=== PATIENT | male | born 1945 | race Caucasian/White ===

== ENCOUNTER 2023-08-19 10:17 | Emergency (ER) | payer OTHER, SELFPAY ==
[2023-08-19 10:24] VITALS: BP 152/88; PULSE 82; RESP 18; TEMP 36.6; O2SAT 96; BMI 34.8
--- NOTE | 2023-08-19 10:30 | DI.RAD.S_ITS ---
PROCEDURE: XR SHOULDER LT MIN 2V INDICATIONS: fall/pain/bump TECHNIQUE: 3 views of the shoulder were acquired. COMPARISON: None. FINDINGS: Bones: No fractures or dislocations. No suspicious bony lesions. Visualized ribs appear intact. Subchondral cystic changes in the humeral head subjacent to the insertion the supraspinatus tendon are consistent rotator cuff tendinosis. Soft tissues: No suspicious soft tissue calcifications. IMPRESSION: No acute bony abnormality. Probable supraspinatus tendinosis Dictated by: Ayaz Ross M.D. on 08/19/2023 at 11:22 Approved by: Ayaz Ross M.D. on 08/19/2023 at 11:23
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
[2023-08-19 13:05] VITALS: BP 140/76; PULSE 76; RESP 24; O2SAT 98
== END 2023-08-19 12:47 | disposition home or self-care (01) ==
PROVIDERS: Emergency Provider Physician Assistant Medical
DX: S46.912A Strain of unspecified muscle, fascia and tendon at shoulder and upper arm level, left arm, initial encounter (principal); S40.012A Contusion of left shoulder, initial encounter; V28.01XA Electric (assisted) bicycle driver injured in noncollision transport accident in nontraffic accident, initial encounter; Y93.55 Activity, bike riding; Y92.410 Unspecified street and highway as the place of occurrence of the external cause
CPT/HCPCS: 73010; 73030; 99282; 99283

== ENCOUNTER 2024-01-16 14:44 | Emergency (ER) | payer OTHER, SELFPAY ==
[2024-01-16 14:46] VITALS: BP 144/66; PULSE 102; RESP 18; TEMP 36.1; O2SAT 97; BMI 35.2
--- NOTE | 2024-01-16 14:54 | DI.RAD.S_ITS ---
PROCEDURE: XR CHEST 1V INDICATIONS: chest pain TECHNIQUE: One view of the chest was acquired. COMPARISON: None. FINDINGS: Mild bilateral perihilar and lower lobe peribronchial thickening some of which may be related expiratory result although bronchitis, viral infection, early findings of bronchopneumonia or other process could be considered. Mild blunting left costophrenic angle may represent trace pleural effusion, pleural thickening, subsegmental atelectasis or other process. Mildly enlarged cardiopericardial silhouette. Pulmonary vasculature within normal limits. Mild calcifications of the aortic arch. Moderate degenerate changes of the thoracic spine and shoulders. No pneumothorax, no lobar consolidation. IMPRESSION: Mild bilateral perihilar and lower lobe peribronchial thickening as discussed above. Mild blunting left costophrenic angle. Mildly enlarged cardiopericardial silhouette. Follow-up suggested. If symptoms persist or worsen, CT could be performed Dictated by: García Escalera M.D. on 01/16/2024 at 15:21 Approved by: García Escalera M.D. on 01/16/2024 at 15:24
--- NOTE | 2024-01-16 15:01 | EKG_ITS ---
[place] [address] [address] [place] [id number] Test Date: 2024-01-16 Pat Name: Marcus Lloyd Department: [facility] Room: Gender: Male [employer] Operator: kelvin : 1945 Requested By: Order Number: [id number] Reading MD: William Goddard Measurements Intervals [place] Rate: 93 P: 33 MS: 252 QRS: 180 QRSD: 106 T: 34 QT: 350 QTc: 435 Interpretive Statements Sinus rhythm with 1st degree AV block Indeterminate axis Low voltage QRS Inferior infarct , age undetermined Electronically Signed On 01-19-2024 19:47:40 PDT by William Goddard
[2024-01-16 15:04] VITALS: PULSE 93; RESP 18; O2SAT 96
[2024-01-16 15:05] VITALS: BP 102/68; PULSE 92; RESP 18; O2SAT 97
[2024-01-16 15:20] LABS: Add Manual Diff / Slide Review NO; Basophils Absolute Auto 100 /uL (0-100); Basophils Percent Auto 0.7 % (0-2); Eosinophils Absolute Auto 0 /uL (0-450); Eosinophils Percent Auto 0.4 % (2-4); Hematocrit 44.5 % (41-53); Hemoglobin 15.1 g/dL (13.5-17.5); Lymphocytes Absolute Auto 1600 /uL (1100-4500); Lymphocytes Percent Auto 14.4 % (25-40); Mean Corpuscular HGB Conc 33.9 % (30-36); Mean Corpuscular Volume 91.6 fL (80-100); Monocytes Absolute Auto 700 /uL (0-900); Monocytes Percent Auto 6.7 % (3-14); Neutrophils Absolute Auto 8600 /uL (1500-7000); Neutrophils Percent Auto 77.8 % (50-75); Platelet Count 280 X10^3/uL (150-400); Red Blood Cell Count 4.86 X10^6/uL (4.5-5.9); Red Cell Distribution Width 13.9 % (11.6-14.8); White Blood Cell Count 11.1 X10^3/uL (4.5-11.0)
[2024-01-16 15:26] LABS: Prothrombin Time 11.2 SECONDS (9.4-12.5)
[2024-01-16 15:29] LABS: PTT Partial Thromboplastin Tim 39 SECONDS (25.1-36.5)
[2024-01-16 15:30] VITALS: BP 106/65; PULSE 89; RESP 14; O2SAT 94
--- NOTE | 2024-01-16 15:32 | ED.ARRPALP ---
HPI - Arrhythmia/Palpitations General Chief Complaint: Arrhythmia/Palpitations Stated Complaint: tachycardic, sent by [facility] Time Seen by Provider: 01/16/24 15:32 Source: patient Mode of arrival: Ambulatory History of Present Illness HPI narrative: Patient is a 78-year-old male with past medical history of hypertension comes into the ED for evaluation of high heart rate. He states that over the past several days his apple watch has been telling him that his heart rate has been going up, not sustaining, he states that he has no symptoms with this is happening. States that he has been noticed since for the past several weeks therefore went to urgent Care, they state that they were sent here once they were evaluated at urgent care. He denies any chest pain shortness of breath denies any palpitations denies any lightheaded dizziness. States that he did have a change in his blood pressure medication from amlodipine to spironolactone around the same timeframe, states this is managed by his primary care doctor. No trauma no falls Related Data Allergies Allergy/AdvReac Type Severity Reaction Status Date / Time No Known Drug Allergies Allergy Verified 08/19/23 10:24 Review of Systems Review of Systems Narrative: HEENT: Denies headache, eye drainage, eye irritation, head trauma, sore throat, voice change Cardiovascular: Denies any chest pain, palpitations, shortness of breath, positive for tachycardia Respiratory: Denies any shortness of breath, cough, wheeze, stridor GI/: Denies any abdominal pain, nausea, vomiting, diarrhea, bright red blood per rectum, melanotic stools, urinary frequency, urinary retention, dysuria, hematuria MSK: Denies any joint pain, muscle pains, swelling Skin: Denies any rashes, lesions, discoloration Neuro: Denies any headache, lightheadedness, dizziness, fainting, weakness Psych: Denies SI/HI Patient History Social History Smoking Status: Never smoker Smoking Status: Never smoker alcohol intake frequency: a few times a week Alcohol type: beer, wine and hard liquor Substance Use Type: does not use Exam Narrative Exam Narrative: General: Cooperative, comfortable, well-developed, not in acute distress HEENT: Normocephalic, atraumatic, PERRLA, normal sclera, eyelids normal, Neck: Active full range of motion, atraumatic Chest: Normal to inspection, negative crepitus, no overlying erythema ecchymosis Respiratory: Normal respiratory effort, not in acute respiratory distress, clear to auscultation bilaterally negative cough, wheeze, tachypnea, rhonchi, rales Cardiology: Regular rate rhythm negative gallop, murmur, rubs GI/: Normal to inspection, soft, nonrigid, no tenderness to palpation, exam deferred MSK: Full range of active range of motion of all 4 extremities, atraumatic Skin: No rashes lesions noted Neuro: Alert awake oriented x3, moves all 4 extremities spontaneously, cranial nerves intact, able to answer all questions appropriately follows commands appropriately Psych: Cooperative, negative suicidal or homicidal ideations Initial Vital Signs Initial Vital Signs: Vital Signs Temperature 97 F L 01/16/24 14:46 Pulse Rate 102 H 01/16/24 14:46 Respiratory Rate 18 01/16/24 14:46 Blood Pressure 144/66 H 01/16/24 14:46 Pulse Oximetry 97 01/16/24 14:46 Oxygen Delivery Method Room Air 01/16/24 14:46 Course Orders Ordered: ED Orders 01/16/24 14:54 XR chest 1V Stat EKG-12 Lead Stat 01/16/24 15:02 Complete Blood Count AUTO DIFF Stat Comprehensive Metabolic Panel Stat Lipase Stat Magnesium Stat NT-proBNP (BNP-Adult 18+) Stat PTT Partial Thromboplastin Dru Stat Prothrombin Time INR Stat Troponin & CK Cardiac Panel Stat Vital Signs Vital signs: Vital Signs - 8 hr 01/16/24 14:46 01/16/24 15:04 01/16/24 15:05 Temperature 97 F L Pulse Rate 102 H 93 H 92 H Respiratory Rate 18 18 18 Blood Pressure 144/66 H Pulse Oximetry 97 96 97 Oxygen Delivery Method Room Air 01/16/24 15:05 01/16/24 15:30 01/16/24 15:30 Temperature Pulse Rate 89 Respiratory Rate 14 Blood Pressure 102/68 106/65 Pulse Oximetry 94 Oxygen Delivery Method 01/16/24 16:00 01/16/24 16:00 Temperature Pulse Rate 85 Respiratory Rate 16 Blood Pressure 103/69 Pulse Oximetry 93 Oxygen Delivery Method MDM - Arrhythmia/Palpitations Differential Diagnosis Differential diagnosis: Likely palpitations, artial fibrillation, artial flutter and other (ACS, pneumonia) Medical Records Attestation: I reviewed the patient's medical records. Lab Data Attestation: I reviewed the patient's lab results. 01/16/24 15:02 01/16/24 15:02 Labs: Lab Results 01/16/24 Range/Units 15:02 WBC 11.1 H (4.5-11.0) X10^3/uL RBC 4.86 (4.5-5.9) X10^6/uL Hgb 15.1 (13.5-17.5) g/dL Hct 44.5 (41-53) % MCV 91.6 (80-100) fL MCH 31.0 (26-34) PG MCHC 33.9 (30-36) % RDW 13.9 (11.6-14.8) % Plt Count 280 (150-400) X10^3/uL Neut % (Auto) 77.8 H (50-75) % Lymph % (Auto) 14.4 L (25-40) % [place] % (Auto) 6.7 (3-14) % Eos % (Auto) 0.4 L (2-4) % Baso % (Auto) 0.7 (0-2) % Neut # (Auto) 8600 H (1237-1316) /uL Lymph # (Auto) 1600 (7769-3912) /uL [place] # (Auto) 700 (0-900) /uL Eos # (Auto) 0 (0-450) /uL Baso # (Auto) 100 (0-100) /uL PT 11.2 (9.4-12.5) SECONDS INR 1.0 (0.9-1.3) APTT 39 H (25.1-36.5) SECONDS Sodium 131 L (137-145) mmol/L Potassium 4.6 (3.4-5.1) mmol/L Chloride 96 L (98-107) mmol/L Carbon Dioxide 27 (22-32) mmol/L BUN 28 H (9-20) mg/dL Creatinine 1.33 H (0.66-1.25) mg/dL Estimated GFR 55 L (>60) mL/min BUN/Creatinine Ratio 21.1 (6-22) Glucose 124 H (80-110) mg/dL Calcium 10.2 (8.4-10.2) mg/dL Magnesium 2.0 (1.6-2.3) mg/dL Total Bilirubin 0.5 (0.2-1.3) mg/dL AST 29 (17-59) IU/L ALT 24 (<50) IU/L Alkaline Phosphatase 69 (38-126) U/L Total Creatine Kinase 61 (55-170) U/L Troponin I < 0.012 (0.01-0.034) ng/mL NT-Pro-B Natriuret Pep 32 (<450) pg/mL Total Protein 8.0 (6.3-8.2) g/dL Albumin 4.5 (3.5-5.0) g/dL Globulin 3.5 (1.7-4.1) g/dL Albumin/Globulin Ratio 1.3 (1.0-2.8) Lipase 68 (23-300) U/L ECG Data Attestation: I personally reviewed and interpreted this ECG as follows: Interpretation: EKG interpreted by ED physician sinus at 93 beats per minute, QTC [address] changes no STEMI MDM Narrative Medical decision making narrative: Patient is a 78-year-old male no significant past medical history presented to the ER after being evaluated at outside urgent care. Patient arrived there stating that his Apple watch has been going off stating that his heart rate has been elevated. He states that when this is happening he has not having any headache visual disturbances chest pain or shortness of breath he has not complaining of any palpitations either. He states that this has been ongoing and persistent for the past several months. Lab work and imaging performed here does not show any signs of acute findings, EKG nonischemic troponin negative electrolytes normal. Patient completely asymptomatic, patient will be safe for outpatient follow up Cardiology and PCP for continued evaluation and treatment. Strict return precautions were given to the patient is safe for discharge home Discharge Plan Departure Patient Disposition: Home Clinical Impression: Palpitation Activity Restrictions/Additional Instructions: Please follow up with the primary care and Cardiology Please read the discharge instructions sheet carefully and bring all papers to all doctor follow-up visits, as it may contain information that your doctor may want to see. Disease processes change and evolve, if your symptoms worsen or if you develop any new symptoms that are concerning to you please return for evaluation. Your evaluation today does not show any evidence of any life-threatening/serious illnesses requiring admission to the hospital or surgery. Please follow-up with your doctor for re-evaluation in approximately 1 day. Seek immediate medical attention for any worrisome symptoms. Referrals: Troy Jarvis MD [Physician] - Miscellaneous,MD Flavia [Primary Care Provider] - Stand Alone Forms: Patient Portal/API
[2024-01-16 15:33] LABS: Alanine Aminotransferase 24 IU/L (<50); Albumin 4.5 g/dL (3.5-5.0); Albumin Globulin Ratio 1.3 (1.0-2.8); Alkaline Phosphatase 69 U/L (38-126); Aspartate Aminotransferase 29 IU/L (17-59); BUN Creatinine Ratio 21.1 (6-22); Bilirubin Total 0.5 mg/dL (0.2-1.3); Blood Urea Nitrogen 28 mg/dL (9-20); Calcium 10.2 mg/dL (8.4-10.2); Carbon Dioxide 27 mmol/L (22-32); Chloride 96 mmol/L (98-107); Creatine Kinase 61 U/L (55-170); Estimated Glomerular Filt Rate 55 mL/min (>60); Globulin 3.5 g/dL (1.7-4.1); Glucose 124 mg/dL (80-110); HEMOLYSIS 21 (0-50); Lipase 68 U/L (23-300); Potassium 4.6 mmol/L (3.4-5.1); Sodium 131 mmol/L (137-145)
[2024-01-16 15:45] LABS: NT-proBNP (BNP-Adult 18+) 32 pg/mL (<450); Troponin I < 0.012 ng/mL (0.01-0.034)
[2024-01-16 16:00] VITALS: BP 103/69; PULSE 85; RESP 16; O2SAT 93
== END 2024-01-16 16:22 | disposition home or self-care (01) ==
PROVIDERS: Emergency Provider Student in an Organized Health Care Education/Training Program
DX: R00.2 Palpitations (principal); R07.9 Chest pain, unspecified; I10 Essential (primary) hypertension; I44.0 Atrioventricular block, first degree
CPT/HCPCS: 36415; 71045; 80053; 82550; 83690; 83735; 83880; 84484; 85025; 85610; 85730; 93005; 99283; 99284

== ENCOUNTER 2024-09-16 12:06 | Emergency (ER) | payer OTHER, SELFPAY ==
[2024-09-16 12:09] VITALS: BP 188/91; PULSE 66; RESP 16; TEMP 36.6; O2SAT 99; BMI 38.0
--- NOTE | 2024-09-16 12:41 | ED.GENADULT ---
HPI - General Adult <Juliette Holland PA-C - Last Filed: 09/16/24 15:25> General Chief complaint: Hypertension Stated complaint: High blood pressure, Slight Numbness in both legs Time Seen by Provider: 09/16/24 12:21 History of Present Illness HPI narrative: Mr. Lloyd is a very pleasant 79 year old gentleman with a past medical history of hypertension, BPH who presents to the emergency department for bilateral lower extremity numbness and elevated blood pressure x2 weeks. Patient states just over 2 weeks ago he was on vacation in [place] and he was walking numerous thousands of steps a day and feeling really well at this time, with no feet numbness or tingling. He did not take his blood pressure cuff with him on vacation but typically he takes his blood pressure every single day as advised by his PCP (ELHAM Rivero). When he returned home from vacation he found that his blood pressures were much more elevated than usual -he typically has a systolic blood pressure in the 150s and his systolic blood pressure has been in the 180s for the last 2 weeks. He is also noticed since coming home both of his feet have been numb. He comes to the emergency department today for further evaluation of the symptoms as he is concerned that this prolonged elevated blood pressure we will cause problems. He denies dizziness but states that he does feel lightheaded upon standing and also after eating a sugary meal but denies a history of known diabetes. He currently is taking chlorthalidone 12.5 mg, spironolactone 50 mg and lisinopril 40 mg for his blood pressure which he takes in the evenings. He ran out of the chlorthalidone about 1 or 2 days ago. He denies headache, visual disturbance, chest pain, shortness of breath, abdominal pain, nausea, vomiting, diarrhea, constipation and feels overall on his normal state of health with the exception of the feet numbness. He is here with his who contributes to the history. Related Data Home Medications Medication Instructions Recorded Confirmed aspirin 81 mg capsule 81 mg PO DAILY 09/16/24 09/16/24 chlorthalidone 25 mg tablet 12.5 mg PO QAM 09/16/24 09/16/24 coQ10 (ubiquinol) 100 mg capsule 100 mg PO DAILY 09/16/24 09/16/24 (Qunol Gurinder CoQ10) duloxetine 60 mg capsule,delayed 60 mg PO DAILY 09/16/24 09/16/24 release lisinopril 40 mg tablet 40 mg PO DAILY 09/16/24 09/16/24 pravastatin 40 mg tablet 40 mg PO DAILY 09/16/24 09/16/24 spironolactone 50 mg tablet 50 mg PO DAILY 09/16/24 09/16/24 tamsulosin 0.4 mg capsule 0.8 mg PO BEDTIME 09/16/24 09/16/24 Previous Rx's Medication Instructions Recorded chlorthalidone 25 mg tablet 12.5 mg (1/2 x 25 mg) PO DAILY 30 09/16/24 days #15 tabs Allergies Allergy/AdvReac Type Severity Reaction Status Date / Time No Known Drug Allergies Allergy Verified 08/19/23 10:24 Review of Systems <Juliette Holland PA-C - Last Filed: 09/16/24 15:25> Review of Systems ROS Unobtainable: All systems reviewed & are unremarkable except as noted in HPI and below Patient History <MARQUIS Molina Last Filed: 09/16/24 15:25> alcohol intake frequency: a few times a week Alcohol type: beer, wine and hard liquor Exam <MARQUIS Molina Last Filed: 09/16/24 15:25> Narrative Exam Narrative: GENERAL: 79 year old patient appears stated age. Well-developed patient, in no acute distress. HEAD: Atraumatic. Normocephalic. EYES: Extraocular motions intact. No scleral icterus. No injection or drainage. NECK: Trachea midline. Cervical ROM intact. CARDIOVASCULAR: Regular rate and rhythm. RESPIRATORY: ?Nonlabored respirations. ?Speaking in clear, full sentences. ?Clear to auscultation. EXTREMITIES: No edema or joint tenderness. Palpable DP and PT pulses bilaterally, brisk capillary refill in the toes, there is fungal disease of all the toenails. No calf swelling or tenderness. NEURO: AOx3. ?Clear speech. ?Moves all 4 extremities appropriately. Reports decreased sensation intact to light touch in the bilateral great toes, equal on both sides. He does have sensation intact to light touch throughout the remainder of the feet. SKIN: No rash or erythema of visible areas Initial Vital Signs Initial Vital Signs: Vital Signs Temperature 97.8 F 09/16/24 12:09 Pulse Rate 66 09/16/24 12:09 Respiratory Rate 16 09/16/24 12:09 Blood Pressure 188/91 H 09/16/24 12:09 Pulse Oximetry 99 09/16/24 12:09 Oxygen Delivery Method Room Air 09/16/24 12:09 <Josie Menard DO - Last Filed: 09/18/24 16:46> Initial Vital Signs Initial Vital Signs: Vital Signs Temperature 97.8 F 09/16/24 12:09 Pulse Rate 66 09/16/24 12:09 Respiratory Rate 16 09/16/24 12:09 Blood Pressure 188/91 H 09/16/24 12:09 Pulse Oximetry 99 09/16/24 12:09 Oxygen Delivery Method Room Air 09/16/24 12:09 Course <Juliette Holland PA-C - Last Filed: 09/16/24 15:25> Orders Ordered: Discontinued Medications Chlorthalidone (Chlorthalidone 25 Mg Tablet) 12.5 mg PO NOW ONE Stop: 09/16/24 12:59 Last Admin: 09/16/24 13:33 Dose: 12.5 mg Documented By: RL Vital Signs Vital signs: Vital Signs - 8 hr 09/16/24 12:09 09/16/24 13:29 09/16/24 13:35 Temperature 97.8 F Pulse Rate 66 63 Pulse Rate [Orthostatic Sitting] 63 Pulse Rate [Orthostatic Standing] 73 Respiratory Rate 16 18 Blood Pressure 188/91 H 158/81 H Blood Pressure [Orthostatic Sitting] 158/81 H Blood Pressure [Orthostatic Standing] 146/97 H Pulse Oximetry 99 Oxygen Delivery Method Room Air <Josie Menard DO - Last Filed: 09/18/24 16:46> Orders Ordered: Discontinued Medications Chlorthalidone (Chlorthalidone 25 Mg Tablet) 12.5 mg PO NOW ONE Stop: 09/16/24 12:59 Last Admin: 09/16/24 13:33 Dose: 12.5 mg Documented By: RL Vital Signs Vital signs: Vital Signs - 8 hr 09/16/24 12:09 09/16/24 13:29 09/16/24 13:35 Temperature 97.8 F Pulse Rate 66 63 Pulse Rate [Orthostatic Sitting] 63 Pulse Rate [Orthostatic Standing] 73 Respiratory Rate 16 18 Blood Pressure 188/91 H 158/81 H Blood Pressure [Orthostatic Sitting] 158/81 H Blood Pressure [Orthostatic Standing] 146/97 H Pulse Oximetry 99 Oxygen Delivery Method Room Air Medical Decision Making <Juliette Holland PA-C - Last Filed: 09/16/24 15:25> Medical Records Medical records reviewed: Yes I reviewed the patient's medical records. Lab Data 09/16/24 13:30 09/16/24 13:30 Labs: Lab Results 09/16/24 Range/Units 13:30 WBC 6.7 (4.5-11.0) X10^3/uL RBC 4.46 L (4.5-5.9) X10^6/uL Hgb 13.9 (13.5-17.5) g/dL Hct 40.8 L (41-53) % MCV 91.6 (80-100) fL MCH 31.2 (26-34) PG MCHC 34.0 (30-36) % RDW 14.2 (11.6-14.8) % Plt Count 232 (150-400) X10^3/uL Neut % (Auto) 66.0 (50-75) % Lymph % (Auto) 23.8 L (25-40) % [place] % (Auto) 8.1 (3-14) % Eos % (Auto) 1.3 L (2-4) % Baso % (Auto) 0.8 (0-2) % Neut # (Auto) 4400 (9224-2746) /uL Lymph # (Auto) 1600 (5888-1058) /uL [place] # (Auto) 500 (0-900) /uL Eos # (Auto) 100 (0-450) /uL Baso # (Auto) 100 (0-100) /uL Sodium 137 (137-145) mmol/L Potassium 4.8 (3.4-5.1) mmol/L Chloride 104 (98-107) mmol/L Carbon Dioxide 26 (22-32) mmol/L BUN 27 H (9-20) mg/dL Creatinine 1.31 H (0.66-1.25) mg/dL Estimated GFR 56 L (>60) mL/min BUN/Creatinine Ratio 20.6 (6-22) Glucose 97 (70-99) mg/dL Hemoglobin A1c 5.8 (4.0-6.0) % Calcium 9.6 (8.4-10.2) mg/dL Magnesium 2.1 (1.6-2.3) mg/dL Total Bilirubin 0.8 (0.2-1.3) mg/dL AST 31 (17-59) IU/L ALT 31 (<50) IU/L Alkaline Phosphatase 58 (38-126) U/L Total Creatine Kinase 86 (55-170) U/L Troponin I < 0.012 (0.01-0.034) ng/mL Total Protein 7.7 (6.3-8.2) g/dL Albumin 4.6 (3.5-5.0) g/dL Globulin 3.1 (1.7-4.1) g/dL Albumin/Globulin Ratio 1.5 (1.0-2.8) ECG Data Interpretation: ECG reveals a rate of 60, QTC of 412, regular rhythm MDM Narrative Medical decision making narrative: 79 year old gentleman with a past medical history of hypertension, BPH who presents to the emergency department for bilateral lower extremity numbness and elevated blood pressure x2 weeks. Differential diagnosis includes but is not limited to hypertensive urgency, uncontrolled blood pressure, medication side effect, electrolyte disturbance, neuropathy, diabetes, etc. On exam the patient is in no acute distress, nontoxic appearing, vital signs appropriate except for elevated blood pressure of 188/91. Patient has been having 2 weeks of elevated blood pressure and 2 weeks of feet numbness however he did experience feet numbness prior to this but had been resolved while he was on vacation. He has not having any chest pain, shortness of breath or dizziness but he is having lightheadedness upon standing and after eating sugary meals occasionally. We will proceed with lab work to check electrolytes, troponin, EKG, A1c. We will give patient his home dose of chlorthalidone as he has been unable to take this for the last 2 days however there is no indication for emergent lowering of blood pressure at this time. Blood pressure improved 158/81. Labs overall reassuring with normal WBC count 6.7, hemoglobin 13.9. Normal electrolytes with a sodium 137, potassium 4.8. Baseline renal function with a BUN 27 and a creatinine of 1.31, creatinine was 1.33 on 01/16/2024. Normal glucose 97. Normal magnesium 2.1. LFTs WNL. Negative/undetectable troponin. A1c 5.8%, normal/prediabetes. Refilled patient's chlorthalidone. He feels well, reassured by findings today. We discussed proper blood pressure taking at home, follow up with PCP for medication management and further evaluation. Discussed strict ED return precautions. He verbalized understanding of all information is agreeable to plan. He is stable for discharge home. <Josie Joao Menard, DO - Last Filed: 09/18/24 16:46> Lab Data Labs: Lab Results 09/16/24 Range/Units 13:30 WBC 6.7 (4.5-11.0) X10^3/uL RBC 4.46 L (4.5-5.9) X10^6/uL Hgb 13.9 (13.5-17.5) g/dL Hct 40.8 L (41-53) % MCV 91.6 (80-100) fL MCH 31.2 (26-34) PG MCHC 34.0 (30-36) % RDW 14.2 (11.6-14.8) % Plt Count 232 (150-400) X10^3/uL Neut % (Auto) 66.0 (50-75) % Lymph % (Auto) 23.8 L (25-40) % [place] % (Auto) 8.1 (3-14) % Eos % (Auto) 1.3 L (2-4) % Baso % (Auto) 0.8 (0-2) % Neut # (Auto) 4400 (1067-5828) /uL Lymph # (Auto) 1600 (1456-9341) /uL [place] # (Auto) 500 (0-900) /uL Eos # (Auto) 100 (0-450) /uL Baso # (Auto) 100 (0-100) /uL Sodium 137 (137-145) mmol/L Potassium 4.8 (3.4-5.1) mmol/L Chloride 104 (98-107) mmol/L Carbon Dioxide 26 (22-32) mmol/L BUN 27 H (9-20) mg/dL Creatinine 1.31 H (0.66-1.25) mg/dL Estimated GFR 56 L (>60) mL/min BUN/Creatinine Ratio 20.6 (6-22) Glucose 97 (70-99) mg/dL Hemoglobin A1c 5.8 (4.0-6.0) % Calcium 9.6 (8.4-10.2) mg/dL Magnesium 2.1 (1.6-2.3) mg/dL Total Bilirubin 0.8 (0.2-1.3) mg/dL AST 31 (17-59) IU/L ALT 31 (<50) IU/L Alkaline Phosphatase 58 (38-126) U/L Total Creatine Kinase 86 (55-170) U/L Troponin I < 0.012 (0.01-0.034) ng/mL Total Protein 7.7 (6.3-8.2) g/dL Albumin 4.6 (3.5-5.0) g/dL Globulin 3.1 (1.7-4.1) g/dL Albumin/Globulin Ratio 1.5 (1.0-2.8) Discharge Plan Departure Patient Disposition: Home Clinical Impression: Elevated blood pressure reading, Numbness and tingling of both feet Instructions: DI for High Blood Pressure Activity Restrictions/Additional Instructions: Dear Mr. Lloyd, Thank you for coming to the emergency department. Today you were evaluated for elevated blood pressure and numbness in your feet. At this time your bloodwork is very reassuring that you have no electrolyte abnormalities, no elevation in cardiac enzymes, no acute kidney problems. I have refilled your chlorthalidone for you. Your hemoglobin A1c is 5.8%. Please follow up with your primary care doctor as soon as possible for further evaluation of your blood pressure. Please take your blood pressure at home with her feet flat on the floor, your arm elevated to the level of the heart, and when you were relaxed. Please return to the emergency department if you develop any new or worsening symptoms, chest pain, shortness of breath, visual disturbance, or other concerns. Please follow up with your primary care doctor within the next 2-3 days for ER follow-up. (If you do not have a PCP you can call [phone]. ?to schedule an appointment with an [facility] Primary Care Provider) IF YOU DEVELOP ANY NEW OR WORSENING SYMPTOMS, RETURN TO THE ER! Please read the attached instructions, they highlight more specific treatments and interventions for you at home. Thank you for letting me participate in your care, Juliette Holland PA-C Prescriptions: New chlorthalidone 25 mg tablet 12.5 mg PO DAILY 30 Days Qty: 15 0RF No Action pravastatin 40 mg tablet 40 mg PO DAILY chlorthalidone 25 mg tablet 12.5 mg PO QAM Patient Comments: given dose in er, lost rx/refill will have to get new one. lisinopril 40 mg tablet 40 mg PO DAILY spironolactone 50 mg tablet 50 mg PO DAILY duloxetine 60 mg capsule,delayed release(DR/EC) 60 mg PO DAILY tamsulosin 0.4 mg Capsule 0.8 mg PO BEDTIME coQ10 (ubiquinol) [Qunol Gurinder CoQ10] 100 mg Capsule 100 mg PO DAILY aspirin 81 mg Capsule 81 mg PO DAILY Referrals: Dominique Rivero PA-C [Primary Care Provider] - Stand Alone Forms: Patient Portal/API/Survey ED Sign-out <Josie Menard DO - Last Filed: 09/18/24 16:46> Cosign ED Attending Luxature Attestation: I was immediately available in the department for consultation.
--- NOTE | 2024-09-16 12:59 | EKG_ITS ---
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
[2024-09-16 13:29] VITALS: BP 146/97; BP 158/81; PULSE 63; PULSE 73
[2024-09-16] MEDS: CHLORTHALIDONE 25 MG TABLET 12.5 MG PO (13:33)
[2024-09-16 13:35] VITALS: BP 158/81; PULSE 63; RESP 18
[2024-09-16 13:40] LABS: Add Manual Diff / Slide Review NO; Basophils Absolute Auto 100 /uL (0-100); Basophils Percent Auto 0.8 % (0-2); Eosinophils Absolute Auto 100 /uL (0-450); Eosinophils Percent Auto 1.3 % (2-4); Hematocrit 40.8 % (41-53); Hemoglobin 13.9 g/dL (13.5-17.5); Lymphocytes Absolute Auto 1600 /uL (1100-4500); Lymphocytes Percent Auto 23.8 % (25-40); Mean Corpuscular Hemoglobin 31.2 PG (26-34); Mean Corpuscular Volume 91.6 fL (80-100); Monocytes Absolute Auto 500 /uL (0-900); Monocytes Percent Auto 8.1 % (3-14); Neutrophils Absolute Auto 4400 /uL (1500-7000); Platelet Count 232 X10^3/uL (150-400); Red Blood Cell Count 4.46 X10^6/uL (4.5-5.9); Red Cell Distribution Width 14.2 % (11.6-14.8); White Blood Cell Count 6.7 X10^3/uL (4.5-11.0)
[2024-09-16 13:50] LABS: Alanine Aminotransferase 31 IU/L (<50); Albumin 4.6 g/dL (3.5-5.0); Albumin Globulin Ratio 1.5 (1.0-2.8); Alkaline Phosphatase 58 U/L (38-126); Aspartate Aminotransferase 31 IU/L (17-59); BUN Creatinine Ratio 20.6 (6-22); Bilirubin Total 0.8 mg/dL (0.2-1.3); Blood Urea Nitrogen 27 mg/dL (9-20); Calcium 9.6 mg/dL (8.4-10.2); Carbon Dioxide 26 mmol/L (22-32); Chloride 104 mmol/L (98-107); Creatine Kinase 86 U/L (55-170); Estimated Glomerular Filt Rate 56 mL/min (>60); Globulin 3.1 g/dL (1.7-4.1); Glucose 97 mg/dL (70-99); HEMOLYSIS < 15 (0-50); Potassium 4.8 mmol/L (3.4-5.1); Sodium 137 mmol/L (137-145); Total Protein 7.7 g/dL (6.3-8.2)
[2024-09-16 13:51] LABS: Magnesium 2.1 mg/dL (1.6-2.3)
[2024-09-16 13:52] LABS: Hemoglobin A1C% w Est Avg Glu 5.8 % (4.0-6.0)
[2024-09-16 14:04] LABS: Troponin I < 0.012 ng/mL (0.01-0.034)
== END 2024-09-16 14:30 | disposition home or self-care (01) ==
PROVIDERS: Emergency Provider Physician Assistant; PCP Physician Assistant
DX: I10 Essential (primary) hypertension (principal); R20.0 Anesthesia of skin
CPT/HCPCS: 36415; 80053; 82550; 83036; 83735; 84484; 85025; 93005; 99283; 99284